=== PATIENT | female | born 1965 | race Caucasian/White ===

== ENCOUNTER 2017-05-07 13:15 | Emergency (ER) ==
[2017-05-07 13:21] VITALS: BP 148/89; TEMP 97.5; BMI 33.7
[2017-05-07] MEDS ORDERED: TORADOL IM STA (13:43)
[2017-05-07] MEDS ORDERED: DECADRON 4 MG/ML SDV IM STA (13:43)
--- NOTE | 2017-05-07 13:46 | ED.PDOC ---
General ED Provider: Dr. SLOANE MURILLO Chief Complaint: Foot Pain/Injury Stated Complaint: Left foot pain for couple days, hurts to walk and stand, no swelling. had similar pain in the rt foor couple years ago, Seen Dr Cohen, Time Seen by Physician: 13:43 Mode of Arrival: Walk-In Information Source: Patient Primary Care Provider: RUDI LEDEZMA Nursing and Triage Documentation Reviewed and Agree: Yes Musculoskeletal Complaint Exam - Ankle/Foot Complaint/Exam Location of Injury: Reports: Left, Foot Mechanism of Injury: Reports: No known trauma Symptoms Are: Reports: Still present Onset of Pain: Reports: Days, Weeks Initial Severity: Moderate Current Severity: Moderate Location: Reports: Discrete Character: Reports: Aching, Throbbing Alleviating: Reports: None Aggravating: Reports: Movement, Weight bearing Able to Bear Weight: Yes Associated Signs and Symptoms: Denies: Swelling, Redness, Bruising, Fever, Weakness, Numbness, Tingling Related History: Reports: Similar episode Gout Risk Factors: Reports: >40 years old Related Surgical History: Reports: None Lower Extremity Findings: Absent: Swelling, Abnormal contour, Erythema Tenderness: Present: Heel, Midfoot Differential Diagnosis: Gout, Tendonitis, Bursitis Review of Systems - Review Of Systems Constitutional: Reports: No symptoms Eyes: Reports: No symptoms Ears, Nose, Mouth, Throat: Reports: No symptoms Respiratory: Reports: No symptoms Cardiac: Reports: No symptoms GI: Reports: No symptoms : Reports: No symptoms Musculoskeletal: Reports: Joint pain Skin: Reports: No symptoms Neurological: Reports: No symptoms Endocrine: Reports: No symptoms Hematologic/Lymphatic: Reports: No symptoms All Other Systems: Reviewed and Negative Past Medical History - Past Medical History Previously Healthy: Yes Endocrine: Reports: None Cardiovascular: Reports: Hypertension Respiratory: Reports: None Hematological: Reports: None Gastrointestinal: Reports: None Genitourinary: Reports: None Neuro/Psych: Reports: None Musculoskeletal: Reports: None Cancer: Reports: None Last Menstrual Period: N/A - Surgical History General Surgical History: Reports: None - Family History Family History: Reports: None - Social History Smoking Status: Former smoker Hx Substance Use: No Alcohol Screening: Occasionally - Immunizations Tetanus Shot up to Date: Yes Physical Exam - Physical Exam Appearance: Well-appearing, No pain distress, Well-nourished Eyes: RUEL, EOMI, Conjunctiva clear ENT: Ears normal, Nose normal, Oropharynx normal Respiratory: Airway patent, Breath sounds clear, Breath sounds equal, Respirations nonlabored Cardiovascular: RRR, Pulses normal, No rub, No murmur GI/: Soft, Nontender, No masses, Bowel sounds normal, No Organomegaly Musculoskeletal: Normal strength, ROM intact, No edema, No calf tenderness Skin: Warm, Dry, Normal color Neurological: Sensation intact, Motor intact, Reflexes intact, Cranial nerves intact, Alert, Oriented Psychiatric: Affect appropriate, Mood appropriate Critical Care Note - Critical Care Note Total Time (mins): 0 Course - Course Orders, Labs, Meds: Orders Category Date Time Status Dexamethasone 4 mg/ml Inj [Decadron 4 mg/ml Sdv] MEDS 05/07/17 13:43 Stat 4 mg IM ONCE STA Ketorolac Tromethamine [Toradol] MEDS 05/07/17 13:43 Stat 60 mg IM ONCE STA FOOT, LEFT 3 VIEWS Stat RADS 05/07/17 13:43 Ordered Vital Signs: Temp Pulse Resp BP Pulse Ox 05/07/17 13:15 97.5 F L 95 H 20 148/89 H 92 L Departure - Departure Time of Disposition: 13:47 Disposition: HOME SELF-CARE Discharge Problem: Left foot pain Instructions: Swollen Joint (ED) Condition: Stable Pt referred to PMD for follow-up: Yes Additional Instructions: rest hot pack keep f/u with Ortho as scheduled. Prescriptions: Hydrocodone/Acetaminophen [[place] 5-325 Tablet] 1 tab PO TID PRN #12 tablet PRN Reason: PAIN Prednisone 10 mg PO BIDWM #14 tablet Allergies/Adverse Reactions: Allergies azithromycin [From Zithromax] Adverse Reaction (Verified 05/07/17 13:24) Home Medications: Ambulatory Orders Albuterol Sulfate [Albuterol Sulfate Hfa] 8.5 gm IH PRN PRN 10/16/13 Fluticasone/Salmeterol [Advair 500-50 Diskus] 1 puff INH BID 10/16/13 Lisinopril/Hydrochlorothiazide [Zestoretic 20-25 mg Tablet] 1 tab PO DAILY 10/16 Montelukast Sodium [Singulair] 10 mg PO BEDTIME 10/16/13 Albuterol Sulfate 0.083% Neb [Albuterol 0.083% Neb] 1 vial NEB RTQ4H PRN Multivitamin [One Daily Multivitamin] 1 each PO DAILY 03/02/15 [place]-3 Fatty Acids/Fish Oil [Fish Oil Conc 1,000 mg Softgel] 1 each PO DAILY Pramipexole Di-HCl [Mirapex] 0.75 mg PO BEDTIME 03/02/15 Docusate Sodium [Colace] 100 mg PO BID 08/08/16 Hydrocodone/Acetaminophen [Roark 5-325 Tablet] 1 tab PO TID PRN #12 tablet 05/07 Prednisone 10 mg PO BIDWM #14 tablet 05/07/17 Disposition Discussed With: Patient, Family
--- NOTE | 2017-05-07 14:43 | DI ---
EXAM: Left foot three views HISTORY: Left foot pain COMPARISON: None FINDINGS: The bones are normal. The joints are normal. No focal soft tissue abnormality. IMPERSSION: Normal examination.
== END 2017-05-07 14:16 | disposition home or self-care (01) ==
LOC: ED 13:15
DX: M79.672 Pain in left foot (principal)
CPT/HCPCS: 96372; 99282

== ENCOUNTER 2018-03-29 13:36 | Outpatient (CLI) ==
--- NOTE | 2018-03-29 14:11 | DI ---
EXAM: Two views of the chest. History: Asthma Comparison: Chest radiograph 03/02/2015, chest CT 04/14/2015 Findings: Heart size is normal. Stable chronic blunting of the left costophrenic angle due to scarr ing. No pneumothorax and no appreciable pleural fluid. No consolidated pneumonia. No acute osseous abnormalities. Impression: No acute cardiopulmonary process. Stable scarring at the left costophrenic angle.
== END 2018-03-29 13:37 | disposition home or self-care (01) ==
LOC: RAD 13:36
PROVIDERS: ATTEND Nurse Practitioner Family
DX: J45.909 Unspecified asthma, uncomplicated (principal); J44.9 Chronic obstructive pulmonary disease, unspecified